=== PATIENT | male | born 1955 | race Caucasian/White ===

== ENCOUNTER 2019-02-23 14:19 | Emergency (ER) | payer OTHER ==
--- NOTE | 2019-02-23 16:14 | RAD REPORT ---
EXAM DESCRIPTION: RAD - Chest Pa And Lat (2 Views) - 02/23/2019 3:36 pm CLINICAL HISTORY: COUGH COMPARISON: No comparisons TECHNIQUE: Frontal and lateral views of the chest were obtained. FINDINGS: The lungs are clear of a peripheral mass or consolidation. Interstitial pattern is promine nt throughout the lung segura. On a baseline study this could be interstitial edema, interstitial inf iltrate, fibrosis or a combination of these etiologies. Failure and volume overload are not suspected . Heart size is normal and central vasculature is within normal limits. No pleural effusion or pne umothorax seen. Thoracic spine degenerative change present. No acute findings seen. No aortic abnorm ality. IMPRESSION: No focal mass or consolidation. Prominent interstitial pattern throughout the lung segura. As a baseline study this pattern could be fibrosis, interstitial edema, interstitial infiltrate or a combination of these etiologies.
--- NOTE | 2019-02-23 16:25 | ER ---
Nurse's Notes [facility] Name: Eris Dukes Age: 64 yrs Sex: Male : 1955 Arrival Date: 02/23/2019 Time: 14:21 Bed 20 Private MD: Diagnosis: Pain in right shoulder Presentation: 02/23 14:41 Presenting complaint: Presenting complaint: Patient states: R shoulder pain radiating ph to neck, worse w/ movement, denies known injury, states, " I had this pain a few years ago and they dx me w/ walking pneumonia." Denies cough or fever, reports slight SOB, also reports smoking approx 1.5 ppd. 14:48 Transition of care: patient was not received from another setting of care. Onset of ph symptoms was February 23, 2019. Risk Assessment: Do you want to hurt yourself or someone else? Patient reports no desire to harm self or others. Initial Sepsis Screen: Does the patient meet any 2 criteria? No. Patient's initial sepsis screen is negative. Does the patient have a suspected source of infection? No. Patient's initial sepsis screen is negative. Care prior to arrival: None. 14:48 Method Of Arrival: Ambulatory ph 14:48 Acuity: KATE 4 ph Historical: - Allergies: 14:53 PENICILLINS; ph 14:53 TETRACYCLINES; ph 14:53 Iodine; ph 14:53 Sulfa (Sulfonamide Antibiotics); ph 14:53 Codeine; ph - PMHx: 14:53 Diabetes - NIDDM; ph - PSHx: 14:53 Knee surgery; ph - Immunization history:: Adult Immunizations up to date. - Social history:: Smoking status: Patient uses tobacco products, smokes 1.5 packs per day. - Ebola Screening: : Patient negative for fever greater than or equal to 101.5 degrees Fahrenheit, and additional compatible Ebola Virus Disease symptoms. Screenin:50 Abuse screen: Denies threats or abuse. Nutritional screening: No deficits noted. rb1 Tuberculosis screening: No symptoms or risk factors identified. Fall Risk None identified. Assessment: 14:50 General: Appears in no apparent distress. comfortable, Behavior is calm, cooperative. rb1 Pain: Complains of pain in left side of neck and right shoulder Pain currently is 8 out of 10 on a pain scale. Pain began x 1 week Aggravated by worse with movement. Neuro: Level of Consciousness is awake, alert, obeys commands, Oriented to person, place, time, situation. Cardiovascular: Capillary refill < 3 seconds is brisk in bilateral fingers. Respiratory: Reports shortness of breath cough that is Airway is patent Respiratory effort is even, unlabored, Respiratory pattern is regular, symmetrical. GI: No signs and/or symptoms were reported involving the gastrointestinal system. : No signs and/or symptoms were reported regarding the genitourinary system. Derm: Skin is pink, warm \\T\\ dry. Musculoskeletal: Range of motion: intact in all extremities. 15:50 Reassessment: Patient appears in no apparent distress at this time. No changes from rb1 previously documented assessment. Vital Signs: 14:52 BP 149 / 80; Pulse 75; Resp 18; Temp 98.0(TE); Pulse Ox 98% on R/A; Weight 86.18 kg; ph Height 6 ft. 0 in. (182.88 cm); 15:50 BP 148 / 81; Pulse 73; Resp 19; Pulse Ox 98% on R/A; rb1 14:52 Body Mass Index 25.77 (86.18 kg, 182.88 cm) ph ED Course: 14:21 Patient arrived in ED. as 14:50 Patient has correct armband on for positive identification. Bed in low position. Call rb1 light in reach. Side rails up X 1. Pulse ox on. NIBP on. 14:52 Triage completed. ph 14:54 Arm band placed on Patient placed in an exam room. ph 14:57 Ruiz Browning FNP-C [facility] la1 14:57 Andrew Diggs MD is Attending Physician. la1 15:02 Nati Otero, LAURIE is Primary Nurse. rb1 15:35 X-ray completed. Patient tolerated procedure well. Patient moved back from radiology. mh1 15:36 Chest Pa And Lat (2 Views) XRAY In Process Unspecified. EDMS 16:47 No provider procedures requiring assistance completed. Patient did not have IV access rb1 during this emergency room visit. Administered Medications: No medications were administered Outcome: 16:24 Discharge ordered by . la1 16:47 Discharged to home ambulatory, with significant other. rb1 16:47 Condition: stable 16:47 Discharge instructions given to patient, Instructed on discharge instructions, follow up and referral plans. medication usage, Demonstrated understanding of instructions, follow-up care, medications, Prescriptions given X 2. 16:49 Patient left the ED. rb1 Signatures: Dispatcher [employer] EDMS Jael Lozano 1 Giana Pritchett Lee, HOME CARE SCHEDULER-C HOME CARE SCHEDULER-Cla1 Valerie Sung, LAURIE RN Nati Otero RN RN rb1 Corrections: (The following items were deleted from the chart) 14:52 14:41 Presenting complaint: ph ph 14:54 14:48 Acuity: KATE 3 ph ph
--- NOTE | 2019-02-23 16:25 | EDPHYS ---
Physician Documentation [facility] Name: Eris Dukes Age: 64 yrs Sex: Male : 1955 Arrival Date: 02/23/2019 Time: 14:21 Bed 20 Private MD: ED Physician Andrew Diggs HPI: 02/23 15:24 This 64 yrs old Male presents to ER via Ambulatory with complaints of Neck la1 and Upper Back Pain. 15:24 The patient or guardian reports cough. Onset: The symptoms/episode began/occurred 1 la1 week(s) ago. Modifying factors: The symptoms are alleviated by nothing. the symptoms are aggravated by nothing. Associated signs and symptoms: Pertinent positives: left neck and right shoulder pain. Severity of symptoms: At their worst the symptoms were mild. The patient has experienced a previous episode. Pt reports that he has had a cough for while and then began having pain in his right shoulder and left neck area. Worse with deep breaths and ROM of the right shoulder. . Historical: - Allergies: 14:53 PENICILLINS; ph 14:53 TETRACYCLINES; ph 14:53 Iodine; ph 14:53 Sulfa (Sulfonamide Antibiotics); ph 14:53 Codeine; ph - PMHx: 14:53 Diabetes - NIDDM; ph - PSHx: 14:53 Knee surgery; ph - Immunization history:: Adult Immunizations up to date. - Social history:: Smoking status: Patient uses tobacco products, smokes 1.5 packs per day. - Ebola Screening: : Patient negative for fever greater than or equal to 101.5 degrees Fahrenheit, and additional compatible Ebola Virus Disease symptoms. ROS: 15:25 Constitutional: Negative for fever, chills, and weight loss, Eyes: Negative for injury, la1 pain, redness, and discharge, ENT: Negative for injury, pain, and discharge, Neck: Negative for injury, pain, and swelling, Cardiovascular: Negative for chest pain, palpitations, and edema. 15:25 Abdomen/GI: Negative for abdominal pain, nausea, vomiting, diarrhea, and constipation. 15:25 : Negative for injury, bleeding, discharge, and swelling, MS/Extremity: Negative for injury and deformity, Neuro: Negative for headache, weakness, numbness, tingling, and seizure. 15:25 Respiratory: Positive for cough. 15:25 Back: Positive for pain with movement. Exam: 16:22 Constitutional: This is a well developed, well nourished patient who is awake, alert, la1 and in no acute distress. Head/Face: Normocephalic, atraumatic. Eyes: Pupils equal round and reactive to light, extra-ocular motions intact. Periorbital areas with no swelling, redness, or edema. ENT: Mucous membranes moist. Neck: Trachea midline,neck is Supple, full range of motion without nuchal rigidity, or vertebral point tenderness. No Meningismus. Chest/axilla: Normal chest wall appearance and motion. Nontender with no deformity. No lesions are appreciated. Cardiovascular: Regular rate and rhythm with a normal S1 and S2. No gallops, murmurs, or rubs. Normal PMI, no JVD. No pulse deficits. Respiratory: Lungs have equal breath sounds bilaterally, clear to auscultation . No rales, rhonchi or wheezes noted. No increased work of breathing, no retractions or nasal flaring. Back: No spinal tenderness. No costovertebral tenderness. Full range of motion. MS/ Extremity: Pulses equal, no cyanosis. Neurovascular intact. Full, normal range of motion. Vital Signs: 14:52 BP 149 / 80; Pulse 75; Resp 18; Temp 98.0(TE); Pulse Ox 98% on R/A; Weight 86.18 kg; ph Height 6 ft. 0 in. (182.88 cm); 15:50 BP 148 / 81; Pulse 73; Resp 19; Pulse Ox 98% on R/A; rb1 14:52 Body Mass Index 25.77 (86.18 kg, 182.88 cm) ph MDM: 14:57 Patient medically screened. la1 16:23 Data reviewed: vital signs, nurses notes, radiologic studies, and as a result, I will la1 discharge patient. Data interpreted: Pulse oximetry: on room air is 98 %. Interpretation: normal. Counseling: I had a detailed discussion with the patient and/or guardian regarding: the historical points, exam findings, and any diagnostic results supporting the discharge/admit diagnosis, radiology results, the need for outpatient follow up, a family practitioner, a orthopedic surgeon, smoking cessation. Special discussion: Based on the patient's history, exam, and Dx evaluation, there is no indication for emergent intervention or inpatient Tx. It is understood by the patient/guardian that if the Sx's persist or worsen they need to return immediately for re-evaluation. I discussed with the patient/guardian in detail that at this point there is no indication for admission to the hospital. It is understood, however, that if the symptoms persist or worsen the patient needs to return immediately for re-evaluation. ED course: Pain reproducible with ROM on the right shoulder, pain only present with inspiration or ROM of the right shoulder, pain is sharp, non-radiating.. 02/23 15:15 Order name: Chest Pa And Lat (2 Views) XRAY; Complete Time: 16:18 la1 Administered Medications: No medications were administered Disposition: 18:32 Co-signature as Attending Physician, Andrew Diggs MD. rn Disposition: 02/23/19 16:24 Discharged to Home. Impression: Pain in right shoulder. - Condition is Stable. - Discharge Instructions: Shoulder Pain, Shoulder Pain, [id number]. - Prescriptions for Cyclobenzaprine 10 mg Oral Tablet - take 1 tablet by ORAL route every 8 hours As needed; 30 tablet. Diclofenac Sodium 75 mg Oral Tablet Sustained Release - take 1 tablet by ORAL route 2 times per day; 30 tablet. - Medication Reconciliation Form, Thank You Letter form. - Follow up: Private Physician; When: 2 - 3 days; Reason: Recheck today's complaints, Re-evaluation by your physician. Follow up: Emergency Department; When: As needed. - Problem is new. - Symptoms have improved. Signatures: Dispatcher [employer] EDMS Andrew Diggs MD MD rn Ruiz Browning, [employer]ING[employer]MENT[employer] S[employer] TEACHER-C [employer]INGUAL ELEMENT[employer] SCHOOL TEACHER-Cla1 Valerie Sung RN RN Nati López RN RN rb1 Corrections: (The following items were deleted from the chart) 16:49 16:24 02/23/2019 16:24 Discharged to Home. Impression: Pain in right shoulder. rb1 Condition is Stable. Forms are Medication Reconciliation Form, Thank You Letter, Antibiotic Education, Prescription Opioid Use. Follow up: Private Physician; When: 2 - 3 days; Reason: Recheck today's complaints, Re-evaluation by your physician. Follow up: Emergency Department; When: As needed. Problem is new. Symptoms have improved. la1
[2019-02-23 17:05] VITALS: TEMP 98; O2SAT 98
[2019-02-23 17:07] VITALS: BP 148/81
== END 2019-02-23 16:49 | disposition home or self-care (01) ==
LOC: ER 14:19
DX: M25.511 Pain in right shoulder (principal); Z88.0 Allergy status to penicillin; Z88.3 Allergy status to other anti-infective agents; Z88.2 Allergy status to sulfonamides; Z88.6 Allergy status to analgesic agent; Z91.09 Other allergy status, other than to drugs and biological substances; F17.210 Nicotine dependence, cigarettes, uncomplicated
CPT/HCPCS: 71046; 99283

== ENCOUNTER 2024-11-15 06:49 | Day surgery (SDC) | payer OTHER ==
[2024-11-03 11:22] LABS: Absolute Lymphocytes (CBC) 2.8 K/uL (0.7-4.9); Hematocrit 37.4 % (39.6-49.0); Hemoglobin 11.7 g/dL (13.6-17.9); MCH 25.1 pg (27.0-35.0); MCHC 31.2 g/dL (32.0-36.0); MCV 80.4 fL (80-100); MPV 8.8 fL (7.6-11.3); Nucleated RBC Absolute Count 0.0 (0-0); Nucleated Red Blood Cells % 0.0 % (0-0); RBC Red Blood Cell Count 4.65 M/uL (4.33-5.43); White Blood Count 10.10 thou/uL (4.3-10.9)
--- NOTE | 2024-11-03 11:36 | RAD REPORT ---
EXAMINATION: TWO VIEW CHEST XR CLINICAL INDICATION: pre op for day surgery TECHNIQUE: 2 views of the chest was performed. COMPARISON: 09/24/2025 FINDINGS: Mild interstitial pulmonary edema. The heart is upper limit of normal in size. No displaced fractures evident. Small hiatal hernia. IMPRESSION: Mild CHF suspected.
[2024-11-03 11:38] LABS: Anion Gap 10.5 mEq/L (5.0-15.0); BUN Blood Urea Nitrogen 13.0 mg/dL (7-18); Glucose Level 302.0 mg/dL (74-106); Potassium 4.5 mEq/L (3.5-5.1)
[2024-11-15] MEDS ORDERED: ROCURONIUM 50 MG/5 ML VIAL IV ONE (07:34)
[2024-11-15] MEDS ORDERED: KETOROLAC 30 MG/ML INJ ONE ×2 (07:34→08:15)
[2024-11-15] MEDS ORDERED: LIDOCAINE 2% MPF 5 ML VIAL ONE (07:34)
[2024-11-15] MEDS ORDERED: MIDAZOLAM HCL 2 MG/2 ML INJ ONE ×2 (07:34→08:16)
[2024-11-15] MEDS ORDERED: FENTANYL CITR 100 MCG/2 ML ONE ×2 (07:34→08:16)
[2024-11-15] MEDS ORDERED: ONDANSETRON 4 MG/2 ML VIAL ONE (07:34)
[2024-11-15] MEDS: NA CHLORIDE 0.9% 1,000 ML ONE (07:51)
[2024-11-15] MEDS: INSULIN REGULAR (HUMAN) 100 UNIT/ML ONE (07:59)
[2024-11-15] MEDS: CEFAZOLIN SODIUM 1 GM/VIAL ONE (08:09)
[2024-11-15] MEDS ORDERED: LIDOCAINE 1% MPF 5 ML VIAL ONE (08:15)
--- NOTE | 2024-11-15 09:57 | P.OP ---
Date of Service: 11/15/24 Preop diagnosis: Left shoulder mass, posterior neck mass and back mass Postop diagnosis: Same Procedure performed: Wide excision left shoulder mass 5 x 3 cm with layered closure, wide excision back mass 4 x 2 cm with layered closure and wide excision posterior neck mass 4 x 2 cm with layered closure Surgeon: Pranay Madrid MD Forest [employer] Conservation Worker: Erika HAWK Estimated blood loss: Minimal Specimen: Left shoulder mass, back mass, posterior neck mass Findings: Frozen section on the left shoulder mass revealed basal cell carcinoma with margins free and the other 2 lesions appear to be benign seborrheic keratosis Anesthesia: General Complications: None Drains: None Fluids and blood products: Nonapplicable Disposition: Recovery room Operative note: Patient brought to the OR and placed in supine position. General anesthesia began. Patient positioned in the right lateral position. Patient prepped and draped in usual sterile fashion. Marcaine 0.5% plain locally. 15 blade used to make a 5 x 3 cm incision on the left shoulder. The mass appeared to be raised with irregular borders and ulcerated. Entire mass excised and sent to frozen section which revealed basal cell carcinoma with the margins being free. Wound irrigated and bleeding controlled cautery. Flaps created. 2-0 chromic used to approximate subcutaneous tissue. 3-0 nylon used to close skin. Then, 4 x 2 cm incision made over the back mass in the posterior neck mass. Both masses excised and sent to pathology. They were labeled appropriately. They appeared to be irritated seborrheic keratosis. Both wounds were closed with 2-0 chromic after flaps were created. Skin was closed with 3-0 nylon. Sterile dressing applied. Patient awakened and taken to recovery room in good general condition. CC: Dr. Camacho's office
[2024-11-15] MEDS ORDERED: HYDROCODONE/APAP 7.5/325 MG TAB PO PRN (10:00)
[2024-11-15 11:05] VITALS: O2SAT 94
[2024-11-15 13:20] VITALS: BP 152/67; TEMP 97
== END 2024-11-15 12:15 | disposition home or self-care (01) ==
LOC: OR 06:49
PROVIDERS: ATTEND Surgery
PROC: 0JB70ZZ Excision of Back Subcutaneous Tissue and Fascia, Open Approach (ICD-10-PCS; 2024-11-15)
PROC: 0JB50ZZ Excision of Left Neck Subcutaneous Tissue and Fascia, Open Approach (ICD-10-PCS; 2024-11-15)
PROC: 0JB40ZZ Excision of Right Neck Subcutaneous Tissue and Fascia, Open Approach (ICD-10-PCS; 2024-11-15)
PROC: 0JBF0ZZ Excision of Left Upper Arm Subcutaneous Tissue and Fascia, Open Approach (ICD-10-PCS; principal; 2024-11-15 08:15)
DX: C44.619 Basal cell carcinoma of skin of left upper limb, including shoulder (principal); C44.41 Basal cell carcinoma of skin of scalp and neck; L82.0 Inflamed seborrheic keratosis
CPT/HCPCS: 11606; 11406; 11424; 93005; 85025; 80048; 36415; 82947 ×2; 88331; 88332; 88305; 71046; J1885; J2704; J2003; J2250; J3010; J2405; J1815; J7030; J0690; J1100